=== PATIENT | female | born 2000 | race Caucasian/White ===

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

== ENCOUNTER 2023-06-27 11:56 | Emergency (ER) | payer OTHER ==
[2023-06-27 12:09] VITALS: BP 113/67; PULSE 69; RESP 18; TEMP 97.2; BMI 24.7
[2023-06-27] MEDS ORDERED: ACETAMINOPHEN 500 MG TABLET (FP) PO ONE (12:44)
[2023-06-27] MEDS ORDERED: IBUPROFEN 600 MG TABLET (FP) PO ONE ×2 (12:44→12:47)
[2023-06-27] MEDS ORDERED: ACETAMINOPHEN 500 MG TABLET (FP) ONE (12:47)
== END 2023-06-27 13:32 | disposition home or self-care (01) ==
LOC: JERFT 11:56
DX: M25.572 Pain in left ankle and joints of left foot (principal); S93.492A Sprain of other ligament of left ankle, initial encounter; R22.42 Localized swelling, mass and lump, left lower limb; W10.9XXA Fall (on) (from) unspecified stairs and steps, initial encounter; X50.1XXA Overexertion from prolonged static or awkward postures, initial encounter
CPT/HCPCS: 73610-TC-LT-FY; 73630-TC-LT; 99283-25